=== PATIENT | female | born 1930 | race Caucasian/White ===

== ENCOUNTER 2018-04-27 10:14 | Emergency (ER) | payer MEDICARE ==
[~2018-04-27] VITALS: Ht 165.1 cm; Wt 45.8 kg
--- NOTE | 2018-04-27 11:26 | RAD ---
PQRS Compliance statement: One or more of the following individualized dose reduction techniques were utilized for this examination: 1. Automated exposure control. 2. Adjustment of the mA and/or kV according to patient size. 3. Use of iterative reconstruction technique. Indication:fell 04-26-2018, head/neck pain TECHNIQUE: CT head without IV contrast COMPARISON:None FINDINGS: No pathologic extra-axial or intra-axial fluid collection. Moderate diffuse cerebral atrophy with ex vacuo dilation of the ventricles. No acute intracranial bleed. 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 Bilateral subcentimeter focus of low attenuation most likely lacunar infarcts, age indeterminate. 2.1 x 1.0 cm focus of low attenuation in the left cerebellar hemisphere most likely infarct, age indeterminate. Right occipital lobe wedge-shaped low-attenuation extending to the cortex most likely infarct, age indeterminate. The orbits are within normal limits. No large scalp hematoma. No acute calvarial fracture. Visualized paranasal sinuses and mastoid air cells are clear. IMPRESSION: 1. No acute intracranial bleed or calvarial fracture. 2. Multifocal small areas of low-attenuation most likely infarcts, age indeterminate. If concern for acute ischemic stroke is high, please consider MRI brain. 3. Moderate White matter changes likely secondary to chronic microvascular ischemic disease. Indication:fell 04-26-2018, head/neck pain TECHNIQUE: CT of the cervical spine without IV contrast with multiplanar reformats. COMPARISON:None FINDINGS: Cervical spine is in normal anatomic alignment. Atlantoaxial joint interval is preserved with mild degenerative changes. No compression deformities. Facet joints are in normal anatomic alignment with multilevel moderate to advanced facet arthropathy. No acute fractures. Advanced C5-C6 degenerative disc disease. Noncontrast appearance of the neck soft tissues is within normal limits. Biapical pleural scarring. Moderate atherosclerotic disease in the proximal left ICA. IMPRESSION: 1. No acute cervical spine fractures. 2. Moderate C5-6 degenerative disc disease with multilevel advanced facet arthropathy. Electronically signed by: Alex Randall DO (04/27/2018 11:22 AM) [facility]
[2018-04-27 11:32] VITALS: BP 127/72
--- NOTE | 2018-04-27 11:33 | RAD ---
Indication: Fall with left-sided hip pain TECHNIQUE: Lateral views of the left ribs COMPARISON: None FINDINGS: Heart is normal in size. Mild dextro scoliosis of the midthoracic spine. Lungs are hyperinflated but clear of focal consolidation. No pneumothorax or pleural effusion. No other fractures seen. IMPRESSION: No acute fractures seen. Electronically signed by: Alex Randall DO (04/27/2018 11:29 AM) [facility] [place]
--- NOTE | 2018-04-27 11:43 | PHYS DOC ---
Past History Past Medical History: A-Fib, Arthritis Past Surgical History: Appendectomy, , Other Alcohol Use: None Drug Use: None Adult General Chief Complaint Chief Complaint: MECHANICAL FALL HPI HPI Patient is an 87-year-old female who presents with complaint of left-sided rib pain, left-sided hip pain as well as head and neck pain after falling. He had been in a chair and had fallen out of chair. Family had been present and patient reportedly did not fall hard. Patient denies having had any loss of consciousness. Review of Systems Review of Systems Constitutional: Denies fever or chills [] Respiratory: Denies cough or shortness of breath [] Cardiovascular: No additional information not addressed in HPI [] GI: Denies abdominal pain, nausea, vomiting or diarrhea [] Musculoskeletal: Complains of left-sided rib, left hip and neck pain [] Neurologic: Rawson of mild headache without focal weakness or sensory changes [] All other systems were reviewed and found to be within normal limits, except as documented in this note. Allergies Allergies Allergies Coded Allergies Type Severity Reaction Last Updated Verified No Known Drug Allergies 04/27/18 No Physical Exam Physical Exam Constitutional: Well developed, well nourished, no acute distress, non-toxic appearance. [] HENT: Normocephalic, atraumatic, bilateral external ears normal, oropharynx moist, no oral exudates, nose normal. [] Eyes: PERRLA, EOMI, conjunctiva normal, no discharge. [] Neck: Normal range of motion, no tenderness, supple, no stridor. [] Cardiovascular: Regular rate and rhythm. There is reproducible chest wall tenderness along the left sided posterior lateral lower rib margin [] Lungs & Thorax: Bilateral breath sounds clear to auscultation [] Abdomen: Bowel sounds normal, soft, no tenderness. [] Skin: Warm, dry, no erythema, no rash. [] Back: No spinous point tenderness. [] Extremities: No tenderness, no cyanosis, no clubbing. There is decreased range of motion of the left hip due to reported pain. [] Neurologic: Awake and alert, no focal deficits noted. [] Current Patient Data Vital Signs Vital Signs Date Time Temp Pulse Resp B/P (MAP) Pulse Ox O2 Delivery O2 Flow Rate FiO2 04/27/18 11:08 56 16 148/71 (96) 98 Room Air 04/27/18 10:30 97.9 EKG EKG [] Radiology/Procedures Radiology/Procedures [] Impressions: PROCEDURE: RIBS LEFT AND PA CHEST Indication: Fall with left-sided hip pain TECHNIQUE: Lateral views of the left ribs COMPARISON: None FINDINGS: Heart is normal in size. Mild dextro scoliosis of the midthoracic spine. Lungs are hyperinflated but clear of focal consolidation. No pneumothorax or pleural effusion. No other fractures seen. IMPRESSION: No acute fractures seen. Electronically signed by: Alex Randall DO (04/27/2018 11:29 AM) [facility] PROCEDURE: CT HEAD AND CERVICAL SPINE WO PQRS Compliance statement: One or more of the following individualized dose reduction techniques were utilized for this examination: 1. Automated exposure control. 2. Adjustment of the mA and/or kV according to patient size. 3. Use of iterative reconstruction technique. Indication:fell 04-26-2018, head/neck pain TECHNIQUE: CT head without IV contrast COMPARISON:None FINDINGS: No pathologic extra-axial or intra-axial fluid collection. Moderate diffuse cerebral atrophy with ex vacuo dilation of the ventricles. No acute intracranial bleed. 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 Bilateral subcentimeter focus of low attenuation most likely lacunar infarcts, age indeterminate. 2.1 x 1.0 cm focus of low attenuation in the left cerebellar hemisphere most likely infarct, age indeterminate. Right occipital lobe wedge-shaped low-attenuation extending to the cortex most likely infarct, age indeterminate. The orbits are within normal limits. No large scalp hematoma. No acute calvarial fracture. Visualized paranasal sinuses and mastoid air cells are clear. IMPRESSION: 1. No acute intracranial bleed or calvarial fracture. 2. Multifocal small areas of low-attenuation most likely infarcts, age indeterminate. If concern for acute ischemic stroke is high, please consider MRI brain. 3. Moderate White matter changes likely secondary to chronic microvascular ischemic disease. Indication:fell 04-26-2018, head/neck pain TECHNIQUE: CT of the cervical spine without IV contrast with multiplanar reformats. COMPARISON:None FINDINGS: Cervical spine is in normal anatomic alignment. Atlantoaxial joint interval is preserved with mild degenerative changes. No compression deformities. Facet joints are in normal anatomic alignment with multilevel moderate to advanced facet arthropathy. No acute fractures. Advanced C5-C6 degenerative disc disease. Noncontrast appearance of the neck soft tissues is within normal limits. Biapical pleural scarring. Moderate atherosclerotic disease in the proximal left ICA. IMPRESSION: 1. No acute cervical spine fractures. 2. Moderate C5-6 degenerative disc disease with multilevel advanced facet arthropathy. Electronically signed by: Alxe Randall DO (04/27/2018 11:22 AM) [facility] Course & Med Decision Making Course & Med Decision Making Pertinent Labs and Imaging studies reviewed. (See chart for details) [] Dragon Disclaimer Dragon Disclaimer This electronic medical record was generated, in whole or in part, using a voice recognition dictation system. Departure Departure: Impression: Primary Impression: Rib contusion Additional Impressions: Cervical strain Closed head injury Disposition: HOME, SELF-CARE Condition: STABLE Referrals: SKYLAR HOFFMAN (PCP) Patient Instructions: Cervical Sprain, Head Injury, Adult, Rib Contusion Problem Qualifiers Primary Impression: Rib contusion Encounter type: initial encounter Laterality: left Qualified Codes: S20.212A - Contusion of left front wall of thorax, initial encounter Additional Impressions: Cervical strain Encounter type: initial encounter Qualified Codes: S16.1XXA - Strain of muscle, fascia and tendon at neck level, initial encounter Closed head injury Encounter type: initial encounter Qualified Codes: S09.90XA - Unspecified injury of head, initial encounter LEXA CAMPBELL Jr., DO Apr 27, 2018 11:43
== END 2018-04-27 11:45 | disposition home or self-care (01) ==
LOC: ER 10:14
DX: S09.90XA Unspecified injury of head, initial encounter (principal); S16.1XXA Strain of muscle, fascia and tendon at neck level, initial encounter; S20.212A Contusion of left front wall of thorax, initial encounter; I48.91 Unspecified atrial fibrillation; M19.90 Unspecified osteoarthritis, unspecified site; W07.XXXA Fall from chair, initial encounter; Y93.89 Activity, other specified; Y92.89 Other specified places as the place of occurrence of the external cause; Y99.8 Other external cause status; M25.552 Pain in left hip
CPT/HCPCS: 70450; 71101; 72125; 99284-25